=== PATIENT | female | born 1950 | race Caucasian/White ===

== ENCOUNTER 2021-03-22 18:00 | Emergency (ER) | payer MEDICARE, OTHER ==
--- NOTE | 2021-03-22 19:39 | EDM.PDOC ---
ED HPI GENERAL MEDICAL PROBLEM - General Chief Complaint: Respiratory Problem Stated Complaint: SOB, FATIGUE Time Seen by Provider: 03/22/21 19:22 Source of Information: Reports: Patient History Limitations: Reports: No Limitations - History of Present Illness INITIAL COMMENTS - FREE TEXT/NARRATIVE: Angi is a 71-year-old female presenting to the ED for evaluation of increasing s hortness of breath. Patient for started having symptoms about a week ago when she was traveling from her home in [place] to [place]. She was seen in urgent care in [place] where they did a Covid nasal test that was reportedly negative. At that time she had a temperature as high as 103.9 F. She has had a nonproductive cough on and off with increasing shortness of breath. Today she checked her oxygenation and it was in the 70s. She went lay down and it raised up into the 80s but she was still feeling quite winded. She called the nurse triage line recommended that she try prone breathing which raised her SPO2 up into the 90s. They suggested that she probably come in and be evaluated. The patient is scheduled to travel from this area where she is currently residing out it [facility] but she travels tomorrow to [place] to see other relatives at a reunion. She is concerned because multiple relatives are either anti-vacters or immunocompromised. The patient is fully vaccinated with the Pfizer vaccine. She did have COVID-19 in August 2020 90 days prior to getting the vaccination. She had made a full recovery after having COVID-19. - Related Data Allergies Allergy/AdvReac Type Severity Reaction Status Date / Time No Known Allergies Allergy Verified 03/22/21 19:13 Home Meds: Home Meds Albuterol Sulfate [Proair Respiclick] 90 mcg IH Q2H PRN 03/22/21 [History] Albuterol/Ipratropium [Combivent Respimat] 4 gm IH Q4H PRN 03/22/21 [History] Fluconazole [Diflucan] 150 mg PO ONETIME PRN 03/22/21 [History] Glimepiride 4 mg PO BID 03/22/21 [History] Insulin Degludec [Tresiba Flextouch U-100] 17 unit SQ BEDTIME 03/22/21 [History] Omeprazole 40 mg PO ONETIME 03/22/21 [History] atorvaSTATin [Lipitor] 10 mg PO BEDTIME 03/22/21 [History] lisinopriL [Lisinopril] 10 mg PO DAILY 03/22/21 [History] metFORMIN [Glucophage] 1,000 mg PO BIDMEALS 03/22/21 [History] ED ROS GENERAL - Review of Systems Review Of Systems: See Below Constitutional: Reports: Fever, Chills, Malaise, Decreased Appetite, Other (Everything either has a muffled taste or taste really salty) HEENT: Reports: Rhinitis Respiratory: Reports: Shortness of Breath, Cough. Denies: Sputum Cardiovascular: Reports: No Symptoms Endocrine: Reports: Fatigue GI/Abdominal: Reports: Nausea : Reports: No Symptoms Musculoskeletal: Reports: No Symptoms Skin: Reports: No Symptoms Neurological: Reports: No Symptoms Psychiatric: Reports: No Symptoms Hematologic/Lymphatic: Reports: No Symptoms Immunologic: Reports: No Symptoms ED EXAM, GENERAL - Physical Exam Exam: See Below Exam Limited By: No Limitations General Appearance: Alert, No Apparent Distress, Anxious Course - Vital Signs Last Recorded V/S: Last Vital Signs Temp 36.5 C 03/22/21 19:47 Pulse 88 03/22/21 22:58 Resp 18 03/22/21 19:47 BP 105/40 L 03/22/21 22:58 Pulse Ox 91 L 03/22/21 22:58 - Orders/Labs/Meds Orders: Active Orders 24 hr Category Date Time Status Chest 1V Frontal [CR] Stat Exams 03/22/21 19:39 Taken Iopamidol [Isovue-370 (76%)] Med 03/22/21 21:15 Active 100 ml IV . DIRECTED Sodium Chloride 0.9% [Normal Saline] 100 ml Med 03/22/21 21:15 Active IV ASDIRECTED Sodium Chloride 0.9% [Saline Flush] Med 03/22/21 20:52 Active 10 ml FLUSH ASDIRECTED PRN Saline Lock Insert [OM.PC] Routine Oth 03/22/21 20:52 Ordered Medication Orders Sodium Chloride (Normal Saline) 100 mls @ 4 mls/sec IV ASDIRECTED SARITHA Last Admin: 03/22/21 21:38 Dose: 4 mls/sec Documented by: NOAH Iopamidol (Iopamidol 755 Mg/Ml 100 Ml Bottle) 100 ml IV . DIRECTED SARITHA Last Admin: 03/22/21 21:38 Dose: 100 ml Documented by: IGNACIOToplistMARCUS Sodium Chloride (Sodium Chloride 0.9% 10 Ml Syringe) 10 ml FLUSH ASDIRECTED PRN PRN Reason: Keep Vein Open Last Admin: 03/22/21 21:38 Dose: 10 ml Documented by: NOAH Labs: Laboratory Tests 03/22/21 03/22/21 03/22/21 Range/Units 19:55 19:55 19:55 WBC 10.6 (4.5-11.0) K/uL RBC 4.23 (3.30-5.50) M/uL Hgb 10.3 L (12.0-15.0) g/dL Hct 31.4 L (36.0-48.0) % MCV 74 L (80-98) fL MCH 24 L (27-31) pg MCHC 33 (32-36) % Plt Count 294 (150-400) K/uL Neut % (Auto) 90.2 H (36-66) % Lymph % (Auto) 4.0 L (24-44) % [place] % (Auto) 4.7 (2-6) % Eos % (Auto) 1.0 L (2-4) % Baso % (Auto) 0.1 (0-1) % D-Dimer, Quantitative 1419.36 H (0.0-500.0) ng/mL Sodium 135 L (140-148) mmol/L Potassium 3.8 (3.6-5.2) mmol/L Chloride 100 (100-108) mmol/L Carbon Dioxide 22 (21-32) mmol/L Anion Gap 16.8 H (5.0-14.0) mmol/L BUN 14 (7-18) mg/dL Creatinine 0.9 (0.6-1.0) mg/dL Est Cr Clr Drug Dosing 50.23 mL/min Estimated GFR (MDRD) > 60 (>60) Glucose 187 H (74-106) mg/dL Lactic Acid (0.4-2.0) mmol/L Calcium 8.6 (8.5-10.1) mg/dL Ferritin 60 (8-388) ng/ml Total Bilirubin 0.6 (0.2-1.0) mg/dL AST 12 L (15-37) U/L ALT 21 (12-78) U/L Alkaline Phosphatase 66 (46-116) U/L C-Reactive Protein 1.59 H (0.0-0.3) mg/dL Total Protein 6.3 L (6.4-8.2) g/dL Albumin 3.1 L (3.4-5.0) g/dL Globulin 3.2 (2.3-3.5) g/dL Albumin/Globulin Ratio 1.0 L (1.2-2.2) Procalcitonin ng/mL SARS CoV-2 RNA Rapid DEANN 03/22/21 03/22/21 03/22/21 Range/Units 19:55 19:55 19:57 WBC (4.5-11.0) K/uL RBC (3.30-5.50) M/uL Hgb (12.0-15.0) g/dL Hct (36.0-48.0) % MCV (80-98) fL MCH (27-31) pg MCHC (32-36) % Plt Count (150-400) K/uL Neut % (Auto) (36-66) % Lymph % (Auto) (24-44) % [place] % (Auto) (2-6) % Eos % (Auto) (2-4) % Baso % (Auto) (0-1) % D-Dimer, Quantitative (0.0-500.0) ng/mL Sodium (140-148) mmol/L Potassium (3.6-5.2) mmol/L Chloride (100-108) mmol/L Carbon Dioxide (21-32) mmol/L Anion Gap (5.0-14.0) mmol/L BUN (7-18) mg/dL Creatinine (0.6-1.0) mg/dL Est Cr Clr Drug Dosing mL/min Estimated GFR (MDRD) (>60) Glucose (74-106) mg/dL Lactic Acid 1.6 (0.4-2.0) mmol/L Calcium (8.5-10.1) mg/dL Ferritin (8-388) ng/ml Total Bilirubin (0.2-1.0) mg/dL AST (15-37) U/L ALT (12-78) U/L Alkaline Phosphatase (46-116) U/L C-Reactive Protein (0.0-0.3) mg/dL Total Protein (6.4-8.2) g/dL Albumin (3.4-5.0) g/dL Globulin (2.3-3.5) g/dL Albumin/Globulin Ratio (1.2-2.2) Procalcitonin 0.26 ng/mL SARS CoV-2 RNA Rapid DEANN Negative Meds: Medications Generic Name Dose Route Start Last Admin Trade Name Conradq PRN Reason Stop Dose Admin Sodium Chloride 100 mls @ 4 mls/sec 03/22/21 21:15 03/22/21 21:38 Normal Saline IV 4 mls/sec ASDIRECTED SARITHA Administration Iopamidol 100 ml 03/22/21 21:15 03/22/21 21:38 Iopamidol 755 Mg/Ml 100 Ml Bottle IV 100 ml . DIRECTED SARITHA Administration Sodium Chloride 10 ml 03/22/21 20:52 03/22/21 21:38 Sodium Chloride 0.9% 10 Ml Syringe FLUSH 10 ml ASDIRECTED PRN Administration Keep Vein Open - Re-Assessments/Exams Free Text/Narrative Re-Assessment/Exam: 03/22/21 21:55 I reviewed the patient's labs showing a leukocyte count of 10.6 which is 90% neutrophils. Hemoglobin is 10.3 with a hematocrit of 31.4 and blood count of 294,000. The comprehensive metabolic panel was unremarkable except for a glucose of 187. D-dimer is markedly elevated at 1419. Lactic acid is 1.6, CRP is 1.59, ferritin is 60 and a procalcitonin is 0.26. The patient's COVID-19 test is negative. Chest x-ray was obtained showing no acute infiltrates. Because of the elevated D-dimer, we proceeded with a CT chest angiogram to evaluate for pulmonary emboli as her source of hypoxia. 03/22/21 23:05 CT chest angiogram failed to demonstrate any evidence for an acute pulmonary embolism, however, did show mediastinal hilar adenopathy suggestive of acute bronchitis. My plan is to put the patient on azithromycin, Z-Shola, and treat this as an acute bronchitis. At this time, there is no evidence for this to be Covid and she is not likely to be at any risk of spreading that at her upcoming reunion tomorrow. Indications to return to the ED were discussed. The azithromycin was sent out to the [employer] machine so the patient may start it tonight. Departure - Departure Time of Disposition: 23:06 Disposition: Home, Self-Care 01 Clinical Impression: Acute bronchitis Qualifiers: Bronchitis organism: unspecified organism Qualified Code(s): J20.9 - Acute bronchitis, unspecified - Discharge Information Instructions: Acute Bronchitis, Adult, [id number] Referrals: PCP,None [Primary Care Provider] - Forms: ED Department Discharge Care Plan Goals: Your work-up today has shown that this is acute bronchitis. We are going to put you on an antibiotic called azithromycin 2 tablets today followed by 1 tablet a day for the next 4 days. Is a very long-acting antibiotic and would last in your system for 10 days. I anticipate you will start to feel better within 2 days. Have fun tomorrow at your reunion. Sepsis Event Note (ED) - Focused Exam Vital Signs: Vital Signs Temp Pulse Resp BP Pulse Ox 03/22/21 22:58 88 105/40 L 91 L 03/22/21 21:53 94 129/57 L 89 L 03/22/21 20:51 90 129/65 91 L 03/22/21 19:47 36.5 C 95 18 142/61 H 93 L 03/22/21 19:12 36.5 C 95 18 142/61 H 93 L - Problem List & Annotations (1) Acute bronchitis SNOMED Code(s): 82413826 Code(s): J20.9 - ACUTE BRONCHITIS, UNSPECIFIED Status: Acute Priority: High Current Visit: Yes Qualifiers: Bronchitis organism: unspecified organism Qualified Code(s): J20.9 - Acute bronchitis, unspecified - Problem List Review Problem List Initiated/Reviewed/Updated: Yes - My Orders Last 24 Hours: My Active Orders 03/22/21 19:39 Chest 1V Frontal [CR] Stat 03/22/21 20:52 Sodium Chloride 0.9% [Saline Flush] 10 ml FLUSH ASDIRECTED PRN Saline Lock Insert [OM.PC] Routine 03/22/21 21:15 Iopamidol [Isovue-370 (76%)] 100 ml IV . DIRECTED Sodium Chloride 0.9% [Normal Saline] 100 ml IV ASDIRECTED - Assessment/Plan Last 24 Hours: My Active Orders 03/22/21 19:39 Chest 1V Frontal [CR] Stat 03/22/21 20:52 Sodium Chloride 0.9% [Saline Flush] 10 ml FLUSH ASDIRECTED PRN Saline Lock Insert [OM.PC] Routine 03/22/21 21:15 Iopamidol [Isovue-370 (76%)] 100 ml IV . DIRECTED Sodium Chloride 0.9% [Normal Saline] 100 ml IV ASDIRECTED
[2021-03-22] MEDS: Sodium Chloride 0.9% 10 ML Syringe FLUSH PRN (21:38)
[2021-03-22] MEDS: Iopamidol 755 Mg/ML 100 ML Bottle IV SCH (21:38)
[2021-03-22] MEDS: Sodium Chloride 0.9% 100 ML IV SCH (21:38)
--- NOTE | 2021-03-22 22:51 | CRLCT ---
For Patients: As a result of the Century Cures Act, medical imaging exams and procedure reports are released immediately into your electronic medical record. You may view this report before your referring provider. If you have questions, please contact your health care provider. Indication: Hypoxia. Dyspnea. Technique: Multiple contiguous axial images were obtained from the thoracic inlet through the upper abdomen after the intravenous administration 100 cc Isovue 370. Please note that all CT scans at this facility use dose modulation, iterative reconstruction, and/or weight-based dosing when appropriate to reduce radiation dose to as low as reasonably achievable. Comparison: None Findings: This exam is tailored for the evaluation of the pulmonary arteries. The aorta is normal in caliber. There is no evidence of aortic dissection. A small hiatal hernia is identified. The heart is normal in size. No pericardial effusions identified. No pulmonary embolism is identified. Shotty bilateral hilar and mediastinal lymphadenopathy is identified. The visualized portions of the liver, spleen, pancreas, and right adrenal gland are grossly normal. Degenerative changes of the spine are identified. No lytic or blastic lesions are identified. A bone island is identified in the T8 vertebral body. Bibasilar atelectasis is identified. Mild increased interstitial opacities are identified bilaterally. No omental fluid overload cannot be completely excluded. Impression: No evidence of pulmonary embolism or aortic dissection. Shoddy mediastinal bilateral hilar lymphadenopathy which may be reactive in nature. Minimal increased interstitial opacities bilaterally which may be seen with fluid overload. Please note that all CT scans at this facility use dose modulation, iterative reconstruction, and/or weight-based dosing when appropriate to reduce radiation dose to as low as reasonably achievable. Dictated by Geovanna Lim MD @ 03/22/2021 10:51:[address] Geovanna Lim @ Mar 22 2021 10:51PM
--- NOTE | 2021-03-23 09:15 | CR ---
CHEST: Portable 03/22/2021 at 8:17 PM CLINICAL HISTORY:Dyspnea, hypoxia COMPARISON:None FINDINGS: Patient is rotated to the right. The heart size, pulmonary vascularity and hilar structures are normal. No infiltrate effusion or pneumothorax is seen. IMPRESSION: No acute cardiopulmonary process.
== END 2021-03-22 23:26 | disposition home or self-care (01) ==
LOC: JP.ED 18:00
DX: J20.9 Acute bronchitis, unspecified (principal); Z20.822 Contact with and (suspected) exposure to COVID-19
CPT/HCPCS: 36415; 71045; 71275; 80053; 82728; 83605; 84145; 85025; 85379; 86140; 99285; Q9967; U0002